=== PATIENT | male | born 1945 | race Two or more races ===

== ENCOUNTER 2017-09-08 13:18 | Emergency (ER) | payer OTHER | END 2017-09-08 13:21 | disposition left against medical advice (07) | LOC: E/R 13:18 | DX: Z53.21 Procedure and treatment not carried out due to patient leaving prior to being seen by health care provider (principal) ==

== ENCOUNTER → 2017-12-15 | Outpatient (CLI) | payer OTHER ==
[2017-12-15 10:01] LABS: AADO2 Arterial 35.8 mmHg (7.0-24.0); Allen Test ACCEPTAB; Arterial Base Excess 2.2 mmol/L (-3.0-3); Arterial Blood Gas Oxygen Sat 92.6 mmHG (95.0-100.0); Arterial COHb 0.9 % (0.0-3.0); Arterial Fraction of Oxyhgb 91.6 % (93.0-99.0); Arterial HCO3 26.7 mmol/L (22.0-26.0); Arterial MetHb 0.2 % (0.0-1.5); Arterial Total Hemglobin 12.3 g/dl (12.0-18.0); Arterial pCO2 41.1 mmhg (35-45); MODE ROOM AIR; Site Left Radial
== END | disposition home or self-care (01) ==
LOC: PUL 09:40
DX: R09.02 Hypoxemia (principal)
CPT/HCPCS: 36600; 82803

== ENCOUNTER 2018-07-16 12:46 | Day surgery (SDC) | payer OTHER | END 2018-07-16 16:14 | disposition home or self-care (01) | LOC: GIL 12:46 | DX: C20 Malignant neoplasm of rectum (principal); I10 Essential (primary) hypertension; I51.9 Heart disease, unspecified; E78.00 Pure hypercholesterolemia, unspecified; J44.9 Chronic obstructive pulmonary disease, unspecified | CPT/HCPCS: 45331; 88305 ==

== ENCOUNTER 2019-01-26 10:43 | Day surgery (SDC) | payer OTHER | END 2019-01-26 16:43 | disposition home or self-care (01) | LOC: GIL 10:43 | DX: C19 Malignant neoplasm of rectosigmoid junction (principal); K64.8 Other hemorrhoids; I10 Essential (primary) hypertension; J44.9 Chronic obstructive pulmonary disease, unspecified; E78.00 Pure hypercholesterolemia, unspecified | CPT/HCPCS: 45331; 88305 ==